=== PATIENT | male | born 1980 | race Caucasian/White ===

== ENCOUNTER → 2021-03-20 | Outpatient (CLI) | payer BC ==
[~2021-03-20] MED LIST: LISINOPRIL10 MG PO; OXYCODON-ACETA1 EAC1 PO; VITAMIN D GUMMIES PO
[2021-03-20 09:41] LABS: HEMOGLOBIN 16.8 gm/dl (14.0-17.5); RED BLOOD COUNT 5.52 M/UL (4.20-5.50); WHITE BLOOD COUNT 8.6 K/UL (4.5-11.0)
== END ==
LOC: RAD 08:58
PROVIDERS: Orthopaedic Surgery
DX: M75.102 Unspecified rotator cuff tear or rupture of left shoulder, not specified as traumatic (principal)
CPT/HCPCS: 36415; 73040; 73222; 82565; 85027; 85610; 85730; A9577; Q9967

== ENCOUNTER → 2021-03-31 | Outpatient (CLI) | payer BC ==
[2021-03-31 13:30] LABS: RED BLOOD COUNT 5.63 M/UL (4.20-5.50); WHITE BLOOD COUNT 9.8 K/UL (4.5-11.0)
[2021-03-31 13:52] LABS: BUN/CREATININE RATIO 11 (0-10)
== END ==
LOC: OPSV2 11:58
PROVIDERS: Orthopaedic Surgery
DX: Z01.818 Encounter for other preprocedural examination (principal); S43.422A Sprain of left rotator cuff capsule, initial encounter
CPT/HCPCS: 36415; 71046; 80048; 85025; 93005

== ENCOUNTER → 2021-04-04 | Day surgery (SDC) | payer BC ==
[~2021-04-04] VITALS: Ht 175.3 cm; Wt 96.2 kg
== END | disposition home or self-care (01) ==
LOC: OR 07:29
DX: M75.102 Unspecified rotator cuff tear or rupture of left shoulder, not specified as traumatic (principal); S46.112A Strain of muscle, fascia and tendon of long head of biceps, left arm, initial encounter; I10 Essential (primary) hypertension; Z79.899 Other long term (current) drug therapy; W00.0XXA Fall on same level due to ice and snow, initial encounter
CPT/HCPCS: C1713; J0592; J0690; J1100; J1885; J2001; J2250; J2405; J2704; J2765; J2795; J3010; J7120